=== PATIENT | male | born 1955 | race Caucasian/White ===

== ENCOUNTER 2021-02-08 08:53 | Inpatient (IN) | payer OTHER ==
[~2021-02-08] VITALS: Ht 182.9 cm; Wt 99.8 kg
[~2021-02-08 08:53] MED LIST: ASPIR 8181 MG PO; BANOPHEN25 MG PO; CARDIZEM CD180 MG PO; COMBIVENT RESPIM4 GM INH; FLUZONE QU60 MCG/015 IM; LASIX20 MG PO; LASIX40 MG PO; LIORESAL TAB 1010 MG PO; MELOXICAM7.5 MG PO; METOPROLOL TART25 MG PO; MONTELUKAST SOD10 MG PO; PLAVIX 75 MG TA75 MG PO; PROTONIX 20 MG20 MG PO; PROTONIX40 MG PO; ROPINIROLE HCL0.5 MG PO; SPIRONOLACTONE25 MG PO; SYMBICORT 16010.2 GM INH; TRAZODONE HCL50 MG PO; TUDORZA PRESS400 MCG INH
[2021-02-08 09:18] LABS: HEMOGLOBIN 13.5 gm/dl (14.0-17.5); RED BLOOD COUNT 4.28 M/UL (4.20-5.50); WHITE BLOOD COUNT 8.3 K/UL (4.5-11.0)
[2021-02-08 09:40] LABS: BUN/CREATININE RATIO 21 (0-10)
[2021-02-08] MEDS ORDERED: VITAMIN D31250 MCG PO (13:06)
[2021-02-08] MEDS ORDERED: PROAIR HFA8.5 GM INH (13:06)
[2021-02-08] MEDS ORDERED: IPRAT-ALBUT 0.5-3 ML INH (13:07)
[2021-02-08] MEDS ORDERED: ASPIRIN81 MG PO (13:08)
[2021-02-09 06:39] LABS: HEMOGLOBIN 12.3 gm/dl (14.0-17.5); RED BLOOD COUNT 4.05 M/UL (4.20-5.50)
[2021-02-09 06:43] LABS: WHITE BLOOD COUNT 5.9 K/UL (4.5-11.0)
[2021-02-09 07:03] LABS: BUN/CREATININE RATIO 34 (0-10)
[2021-02-10 07:00] LABS: BUN/CREATININE RATIO 38 (0-10)
[2021-02-11 09:55] LABS: BUN/CREATININE RATIO 36 (0-10)
[2021-02-12 06:17] LABS: HEMOGLOBIN 12.3 gm/dl (14.0-17.5); RED BLOOD COUNT 3.99 M/UL (4.20-5.50)
[2021-02-12 06:20] LABS: WHITE BLOOD COUNT 9.5 K/UL (4.5-11.0)
[2021-02-12 07:08] LABS: BUN/CREATININE RATIO 34 (0-10)
[2021-02-12] MEDS ORDERED: SPIRIVA HANDIH18 MCG INH (08:58)
[2021-02-12] MEDS ORDERED: SYMBICORT 16010.2 GM INH (08:58)
[2021-02-12] MEDS ORDERED: PREDNISONE 20 M20 MG PO (09:04)
== END 2021-02-12 15:47 | disposition home or self-care (01) | DRG 189 ==
LOC: ER1 08:53 → CDU 12:01 → MED SURG 4 12:01
PROVIDERS: Family Medicine; Internal Medicine; Physician Assistant Medical; ADMIT Internal Medicine
PROC: 5A09457 Assistance with Respiratory Ventilation, 24-96 Consecutive Hours, Continuous Positive Airway Pressure (ICD-10-PCS; 2021-02-08)
PROC: B24BZZZ Ultrasonography of Heart with Aorta (ICD-10-PCS; principal; 2021-02-10)
DX: J96.22 Acute and chronic respiratory failure with hypercapnia (principal); J44.1 Chronic obstructive pulmonary disease with (acute) exacerbation; J96.21 Acute and chronic respiratory failure with hypoxia; Z20.822 Contact with and (suspected) exposure to COVID-19; E66.9 Obesity, unspecified; I10 Essential (primary) hypertension; E78.5 Hyperlipidemia, unspecified; I27.20 Pulmonary hypertension, unspecified; I08.3 Combined rheumatic disorders of mitral, aortic and tricuspid valves; F17.210 Nicotine dependence, cigarettes, uncomplicated; Z91.14 Patient's other noncompliance with medication regimen; Z79.82 Long term (current) use of aspirin; Z85.3 Personal history of malignant neoplasm of breast; Z90.11 Acquired absence of right breast and nipple; Z88.1 Allergy status to other antibiotic agents; Z83.3 Family history of diabetes mellitus; Z68.29 Body mass index [BMI] 29.0-29.9, adult
CPT/HCPCS: ECHO; 36415; 36600; 71045; 76641-LT; 80048; 80053; 81001; 82550; 82553; 82803; 82962; 83036; 83605; 83735; 83880; 84484; 85025; 85027; 87040; 93005; 93306; 94640; 94660; 94664; 94760; 96374; 99285; J0696; J1650; J2920; J2930; U0002

== ENCOUNTER → 2021-02-20 | Outpatient (CLI) | payer OTHER ==
[~2021-02-20] MED LIST changes: +ASPIRIN81 MG PO; +IPRAT-ALBUT 0.5-3 ML INH; +PREDNISONE 20 M20 MG PO; +PROAIR HFA8.5 GM INH; +SPIRIVA HANDIH18 MCG INH; +VITAMIN D31250 MCG PO
== END ==
LOC: HEART 5 04:30
DX: J44.9 Chronic obstructive pulmonary disease, unspecified (principal)
CPT/HCPCS: 94060; 94729

== ENCOUNTER → 2021-02-21 | Outpatient (CLI) | payer OTHER | LOC: RT 13:34 | DX: J96.92 Respiratory failure, unspecified with hypercapnia (principal) | CPT/HCPCS: 36600; 82803 ==

== ENCOUNTER → 2021-10-02 | Outpatient (CLI) | payer OTHER | LOC: KOH-I 15:24 | DX: M79.604 Pain in right leg (principal); M79.605 Pain in left leg | CPT/HCPCS: 93970 ==